=== PATIENT | female | born 1960 | race Caucasian/White ===

== ENCOUNTER 2017-02-04 19:08 | Observation (INO) | payer BC ==
[~2017-02-04] VITALS: Ht 165.1 cm; Wt 77.4 kg
[2017-02-04] MEDS ORDERED: VICTOZA18 MG/3 ML SC (19:20)
[2017-02-04] MEDS ORDERED: GLIPIZIDE5 MG PO (19:21)
[2017-02-04] MEDS ORDERED: METFORMIN1000 MG PO (19:21)
[2017-02-04] MEDS ORDERED: ASPIRIN81 MG PO (19:22)
[2017-02-04] MEDS ORDERED: CELEXA20 M1 PO (19:22)
[2017-02-04] MEDS ORDERED: ZYRTEC10 MG PO (19:23)
[2017-02-04] MEDS ORDERED: TRESIBA FL100 UNIT/M SC (19:24)
--- NOTE | 2017-02-04 19:28 | NUR ---
Pt ambulated to room # 13 with steady gait. Call martinez within reach.
[2017-02-04] MEDS ORDERED: CLINDAMYCIN300 M1 PO ×2 (19:40→20:17)
[2017-02-04] MEDS ORDERED: GLIPIZIDE XL5 MG PO (19:41)
[2017-02-04] MEDS ORDERED: FLUCONAZOLE150 MG PO (19:41)
[2017-02-04] MEDS ORDERED: METFORMIN500 M2 PO (19:41)
[2017-02-04] MEDS ORDERED: TOPAMAX50 MG PO (19:42)
[2017-02-04] MEDS ORDERED: DICLOFENAC SODI50 M1 PO (19:43)
--- NOTE | 2017-02-04 20:00 | NUR ---
DR VARGAS AT BEDSIDE, I&D R LIP. PACKING INSERTED. PT TOLERATED WITHOUT DISTRESS.
[2017-02-04 20:26] LABS: HEMATOCRIT 39.5 % (37.0-47.0); HEMOGLOBIN 12.6 g/dl (12.0-16.0); IMMATURE GRANULOCYTES 0.4 % (0.0-1.0); MEAN CELL VOLUME 89.8 fL CALC (80.0-100.0); MEAN CORPUSCULAR HGB 28.6 pG CALC (26.0-32.0); MEAN CORPUSCULAR HGB CONC 31.9 g/L CALC (32.0-36.0); NEUT# 11.39 thou/uL (2.00-7.15); RED BLOOD COUNT 4.4 mill/uL (4.20-5.60); RED CELL DISTRI WIDTH 14.5 % (11.5-15.5)
[2017-02-04 20:39] LABS: ALBUMIN 4.6 g/dL (3.2-5.0); ALKALINE PHOSPHATASE 96 u/l (38-126); ANION GAP 19 (6-22 (CALC)); BILIRUBIN, TOTAL 0.7 mg/dL (0.0-1.4); BUN 19 mg/dL (7-17); BUN/CREATININE RATIO 17 (12-20 (CALC)); CALCIUM 10.2 mg/dL (8.4-10.2); CARBON DIOXIDE 21 mmol/l (22-30); CHLORIDE 105 mmol/l (95-108); CREATININE 1.1 mg/dL (0.5-1.0); GFR 51 ML/MIN (>=60 (CALC)); GFR FOR AFR.AMER. > 60 ML/MIN (>=60 (CALC)); GLUCOSE 130 mg/dL (65-105); POTASSIUM 4.6 mmol/l (3.5-5.1); SGOT/AST 20 u/l (14-36); SGPT/ALT 31 u/l (9-52); SODIUM 141 mmol/l (137-146); TOTAL PROTEIN 8.2 g/dL (6.3-8.2)
--- NOTE | 2017-02-04 21:00 | NUR ---
DRESSING PLACED OVER R LIP. PT WITHOUT DISTRESS AT THIS TIME.
--- NOTE | 2017-02-04 21:35 | NUR ---
PT INFORMED OF ADMISSION.
--- NOTE | 2017-02-04 21:56 | NUR ---
REPORT CALLED TO [facility].
--- NOTE | 2017-02-04 21:58 | NUR ---
PT TO 261 VIA W/C.
[2017-02-04 22:01] VITALS: BP 122/84
--- NOTE | 2017-02-04 22:01 | NUR ---
PATIENT ARRIVED TO THE FLOOR FROM ED VIA WHEELCHAIR IN STABLE CONDITION, ACCOMPANIED BT ED STAFF. PATIENT SETTLED TO BED AND ORIENTED TO ROOM CALL SYSTEM. PATIENT DENIES PAIN AT THIS TIME. BED IN LOW POSITION, CALL LIGHT IN REACH.
--- NOTE | 2017-02-05 | NUR ---
PATIENT RESTING QUIETLY IN BED. NO ACUTE CHANGES NOTED IN PATIENT'S CONDITION.
[2017-02-05 04:32] VITALS: BP 131/62
[2017-02-05 05:30] LABS: HEMATOCRIT 34.6 % (37.0-47.0); HEMOGLOBIN 10.8 g/dl (12.0-16.0); MEAN CELL VOLUME 90.3 fL CALC (80.0-100.0); MEAN CORPUSCULAR HGB 28.2 pG CALC (26.0-32.0); MEAN CORPUSCULAR HGB CONC 31.2 g/L CALC (32.0-36.0); RED BLOOD COUNT 3.83 mill/uL (4.20-5.60); RED CELL DISTRI WIDTH 14.6 % (11.5-15.5)
[2017-02-05 05:37] LABS: ANION GAP 14 (6-22 (CALC)); BUN 18 mg/dL (7-17); BUN/CREATININE RATIO 19 (12-20 (CALC)); CALCIUM 9.4 mg/dL (8.4-10.2); CARBON DIOXIDE 24 mmol/l (22-30); CHLORIDE 108 mmol/l (95-108); CREATININE 0.9 mg/dL (0.5-1.0); GFR > 60 ML/MIN (>=60 (CALC)); GFR FOR AFR.AMER. > 60 ML/MIN (>=60 (CALC)); GLUCOSE 72 mg/dL (65-105); MAGNESIUM 1.5 mg/dL (1.6-2.3); POTASSIUM 4.1 mmol/l (3.5-5.1); SODIUM 142 mmol/l (137-146)
--- NOTE | 2017-02-05 07:20 | NUR ---
REPORT RECEIVED FROM KAYLEE BYRD; PT.IS SLEEPING AT THIS TIME W/FAMILY AT BS; PT.AWOKE UPON US ENTERING ROOM, DENIES ANY NEEDS AT THIS TIME, CALL LIGHT IS WITHIN REACH; WILL FOLLOW-UP WITH V/S AND ASSESSMENT.
[2017-02-05 08:10] VITALS: BP 86/57
--- NOTE | 2017-02-05 08:30 | NUR ---
PT.V/S ASSESSED, B/P 86/57, MIKE CEDEÑO AND ARE IN ROOM AT THIS TIME; MIKE CEDEÑO ORDERED FLUIDS TO BE INCREASED TO 250MLS/HR BOLUS FOR 1HR FOR B/P; WILL REASSESS IN AN HOUR
--- NOTE | 2017-02-05 09:42 | NUR ---
Drug Selected: Vancomycin Age: 56 years Weight: 77 kg Height: 65 in Gender: Female SCR: 0.9 mg/dl Calculated Values: IBW: 57.00 kg CRCL (ml/min): 61.3 Portillo (hr-1): 0.055 Half-life (hrs): 12.60 Final Report: Give Vancomycin 1000 mg q12 hrs nEXT TROUGH WILL BE 02/06/17 AT 0930
--- NOTE | 2017-02-05 10:13 | NUR ---
PT.B/P BACK UP TO 105/; PT.GETTING SHOWER AT THIS TIME, I WILL START ANTIBIOTIC THERAPY WHEN SHE IS OUT OF SHOWER
[2017-02-05 10:20] VITALS: BP 105/66
[2017-02-05 15:26] VITALS: BP 90/53
--- NOTE | 2017-02-05 17:00 | NUR ---
PT.MEDICATED ORDERS PROVIDE, PT.UP TO RESTROOM, PT.DAUGHTER IS AT BS, SNACK PROVIDED. PT.DENIES ANY PAIN OR DISCOMFORT AT THIS TIME; PT.WAS INSTRUCTED TO CALL IF ANY NEEDS ARISE
--- NOTE | 2017-02-05 19:33 | NUR ---
BEDSIDE REPORT RECEIVED FROM KAYLEE HARRIS. PT RESTING IN POSITIONED ON LEFT SIDE. STATES THAT LORTAB WAS EFFECTIVE FOR PAIN AND ZOFRAN EFFECTIVE FOR NAUSEA. RESPIRATIONS EVEN AND UNLABORED. PLAN OF CARE REVIWED WITH PT. PT ENCOURAGED TO VERBALIZE CONCERNS. STATES UNDERSTANDING. SAFETY MEASURES IN PLACE. CALL LIGHT WITHIN REACH.
[2017-02-05 19:55] VITALS: BP 96/62
--- NOTE | 2017-02-06 00:36 | NUR ---
PT UP WATCHING TV. NEW IV STARTED DUE TO PREVIOUS ONE LEAKING. NEW IV SITE FLUSHES AND APPEARS HEALTHY. PT DENIES PAIN; RESPIRATIONS EVEN AND UNLABORED. IV ABT INFUSED WITH NO ADVERSE REACTIONS NOTED. PT HAS NO REQUESTS AT THIS TIME. UP AD MIKAYLA TO BATHROOM. SAFETY MEASURES IN PLACE. CALL LIGHT WITHIN REACH.
--- NOTE | 2017-02-06 04:21 | NUR ---
PT ASLEEP AT THIS TIME. NO SIGNS OF DISTRESS NOTED. RESPIRATIONS EVEN AND UNLABORED. NEW TAINA AND PAPER TAPE APPLIED TO LIP/EXPOSED PACKING TO PREVENT IRRITATION. PT INDEPENDENT IN ROOM; UP AD MIKAYLA TO USE RESTROOM. USES CALL LIGHT WHEN ASSISTANCE NEEDED. CALL LIGHT WITHIN REACH.
[2017-02-06 04:40] VITALS: BP 95/61
--- NOTE | 2017-02-06 07:05 | NUR ---
PT RESTING WITH EYES CLOSED ON ROUNDS; NO COMPLAINTS VOICED; CALL ALSTON WITHIN REACH; WILL CONTINUE TO MONITOR.
[2017-02-06 08:00] VITALS: BP 109/69
--- NOTE | 2017-02-06 09:30 | NUR ---
DR. OLIVAREZ IN TO SEE PT; DRSG FROM RT UPPER LIP REMOVED, PACKING REMOVED AND AREA CLEANED WITH NS; AREA PACKED BY MD WITH IODOFORM GAUZED COVERED WITH 1 2X2 GAUZE AND SECURED WITH PAPER TAPE; PT TOLERATED WELL; CALL ALSTON WITHIN REACH; WILL CONTINUE TO MONITOR.
[2017-02-06] MEDS ORDERED: DOXYCYC MONO100 M3 PO (10:24)
[2017-02-06] MEDS ORDERED: FLORASTOR250 M1 PO (10:25)
--- NOTE | 2017-02-06 11:29 | NUR ---
Discharge instructions given. Patient verbalizes understanding of same. Discharged in stable condition via Ambulatory to Home with family. All belongings sent with pt.
== END 2017-02-06 12:00 | disposition home or self-care (01) | DRG 638 ==
LOC: ED 19:08 → ED-I 21:00 → ED 21:38 → MS2 21:39
PROVIDERS: ADMIT Internal Medicine; ATTEND Internal Medicine
PROC: 0H91XZZ Drainage of Face Skin, External Approach (ICD-10-PCS; principal; 2017-02-04)
DX: E11.628 Type 2 diabetes mellitus with other skin complications (principal); L02.01 Cutaneous abscess of face; K13.0 Diseases of lips; Z87.891 Personal history of nicotine dependence; Z79.4 Long term (current) use of insulin
CPT/HCPCS: G0378

== ENCOUNTER 2019-05-16 | Inpatient (IN) | payer SELFPAY ==
--- NOTE | 2019-05-14 10:13 | NUR ---
PT TO ROOM FOR EXAM PER W/C
[2019-05-14 10:49] LABS: HEMATOCRIT 35.4 % (37.0-47.0); HEMOGLOBIN 11.3 g/dl (12.0-16.0); IMMATURE GRANULOCYTES 0.7 % (0.0-5.0); MEAN CELL VOLUME 88.3 fL CALC (80.0-100.0); MEAN CORPUSCULAR HGB 28.2 pG CALC (26.0-32.0); MEAN CORPUSCULAR HGB CONC 31.9 g/L CALC (32.0-36.0); NEUT# 12.38 thou/uL (2.00-7.15); RED BLOOD COUNT 4.01 mill/uL (4.20-5.60); RED CELL DISTRI WIDTH 14.1 % (11.5-15.5)
[2019-05-14 11:07] LABS: ALBUMIN 3.7 g/dL (3.2-5.0); ALKALINE PHOSPHATASE 110 u/l (38-126); BILIRUBIN, TOTAL 0.6 mg/dL (0.0-1.4); BUN 19 mg/dL (7-17); BUN/CREATININE RATIO 24 (12-20 (CALC)); CARBON DIOXIDE 23 mmol/l (22-30); CHLORIDE 97 mmol/l (95-108); CREATININE 0.8 mg/dL (0.5-1.0); GFR > 60 ML/MIN (>=60 (CALC)); GFR FOR AFR.AMER. > 60 ML/MIN (>=60 (CALC)); POTASSIUM 4.4 mmol/l (3.5-5.1); SGOT/AST 25 u/l (14-36); TOTAL PROTEIN 7.1 g/dL (6.3-8.2)
[2019-05-14 11:09] LABS: ANION GAP 16 (6-22 (CALC)); SODIUM 132 mmol/l (137-146)
--- NOTE | 2019-05-14 11:10 | NUR ---
PT RETURNED FROM CT AT THIS TIME; PT C/O FEELING FLUSHED; TEMP READING 102.6 AT THIS TIME; NOTIFIED MEDICATED WITH TYLENOL PER JUL; VSS; WILL CONTINUE TO MONITOR
[2019-05-14 11:18] LABS: MYOGLOBIN 107 ng/mL (0 - 62)
--- NOTE | 2019-05-14 12:00 | NUR ---
PT TEMP 100.2; NOTIFIED; VSS;
--- NOTE | 2019-05-14 13:10 | NUR ---
PT AMB TO BR FOR UA; PT AMB WITH STEADY GAIT; DAUGHTER AT BEDSIDE
[2019-05-14 13:35] LABS: URINE BILIRUBIN - DIPSTICK NEGATIVE (NEGATIVE); URINE BLOOD DIPSTICK NEGATIVE (NEGATIVE); URINE COLOR YELLOW; URINE GLUCOSE - DIPSTICK 500 mg/dL (NEGATIVE); URINE KETONE NEGATIVE (NEGATIVE); URINE LEUK ESTERASE NEGATIVE (NEGATIVE); URINE NITRITE - DIPSTICK NEGATIVE (Negative); URINE PH 5.5 (4.5-8.0); URINE PROTEIN - DIPSTICK TRACE mg/dL (NEG-TRACE); URINE SPECIFIC GRAVITY 1.025
[2019-05-14 13:46] LABS: BARBITURATES NEGATIVE (NEGATIVE); COCAINE NEGATIVE (NEGATIVE); METHADONE NEGATIVE (NEGATIVE); OXCYCODONE NEGATIVE (NEGATIVE); TETRAHYDROCANNABIONOL NEGATIVE (NEGATIVE); TRICYLIC ANTIDEPRESSANTS NEGATIVE (NEGATIVE)
--- NOTE | 2019-05-14 14:02 | NUR ---
AT BEDSIDE TO DISCUSS CT SCAN OF ABD. VERBAL UNDERSTANDING FROM PATIENT.
--- NOTE | 2019-05-14 15:00 | NUR ---
PT RESTING ON STRETCHER NO S/S OF DISTRESS NOTED; PT UPDATED ON POC; WILL CONTINUE TO MONITOR
--- NOTE | 2019-05-14 16:00 | NUR ---
PT RESTING ON STRETCHER; NO S/S OF DISTRESS NOTED; PT UPDATED ON CONTINUED WAIT TIME
--- NOTE | 2019-05-14 17:04 | NUR ---
PT ARRIVED TO MS2 VIA WHEELCHAIR ACCOMPANIED BY FAMILY AND ED NURSE. PT ALERT AND ORIENTED X3, WT OBTAINED ON DIGITAL STANDING SCALE. ORIENTED PT TO ROOM AND CALL LIGHT, ACCUCHECK OBTAINED; 257. DISCUSSED POC, NOTED COUGH WITH THICK GREEN SPUTUM. SPECIMEN CUP PROVIDED. PT MEDICATED WITH NOVOLOG. SKIN INTACT. OFFERED PT TEDS, PT DECLINED. IS PLACED AT BEDSIDE, PT FAMILIAR WITH ITS USE. ENCOURAGED 10X EVERY HR WHILE AWAKE. ADMISSION ASSESSMENT COMPLETED, CALL LIGHT IN REACH,CONTINUE TO MONITOR.
--- NOTE | 2019-05-14 17:05 | NUR ---
Admission Note Report Given to: JOSE BAHENA Transported by: X Wheelchair Stretcher Transported with: X Nurse Transporter X Patent IV O2 Hearing And Speech Assistant
[2019-05-14 17:20] VITALS: BP 117/79
--- NOTE | 2019-05-14 17:57 | NUR ---
PER SEPSIS PROTOCOL, ELECTRONIC MUSICAL INSTRUMENT REPAIRER NOTIFIED PT POSSIBLE SEPSIS. ORDERS ENTERED FOR LACTIC ACID AT THIS TIME.
--- NOTE | 2019-05-14 18:08 | NUR ---
LACTIC ACID 2.1, CLOTH SHRINKING MACHINE OPERATOR HELPER NOTIFIED. ORDERS TO GIVE 1500L BOLUS. AWAITING ORDERS.
--- NOTE | 2019-05-14 19:47 | NUR ---
ASSESSMENT COMPLETED. PT. SLIGHTLY ANXIOUS AND RELAXATION TECHNIQUES IMPLEMENTED. UPDATED ON POC AND VERBALIZES UNDERSTANDING. IV SITE PATENT AND INFUSING IVF WELL. HALF OF LAST BOLUS STARTED AND THEN WILL BE SET TO MAINTENAINCE IVF @100MLS/HR PER ORDER. TEMP 100.8 AND MEDICATED WITH ORDERED TYLENOL; WILL REASSESS. PT. ASSISTED TO THE BATHROOM TO VOID AND BACK INTO BED WITH STEADY GAIT. INCENTIVE SPIROMETER AT BEDSIDE AND IS ENCOURAGED TO USE AND DEEP BREATHE. SPUTUM IN SPECIMEN CUP AND LABLED FOR LAB TO SENIOR CONTROL SYSTEMS ENGINEER. PT. REQUESTS SOMETHING TO HELP HER SLEEP AND NOTIFIED MIKE PEREZ OF THIS WILL AWAIT NEW ORDERS. PT. ENCOURAGED TO CALL FOR ANY NEEDS. CALL LIGHT IS IN REACH.
[2019-05-14 19:56] VITALS: BP 101/65
--- NOTE | 2019-05-14 23:59 | NUR ---
ASSISTED TO AND FROM THE BATHROOM WITH STEADY GAIT. VOICES NO CONCERNS. CALL LIGHT IS IN REACH. WILL CONTINUE TO MONITOR.
--- NOTE | 2019-05-15 02:05 | NUR ---
PT. ASSISTED TO BATHROOM AND BACK INTO BED. PT. C/O LOWER BACK ACHE AND WARM COMPRESSESS APPLIED. PT. OFFERED A SHOWER AND PT. DECLINES AND REPORTS SHE WILL WAIT FOR HER DAUGHTER TO COME IN THE AM. ENCOURAGED TO CALL FOR ANY NEEDS. CALL LIGHT IS IN REACH.
[2019-05-15 04:00] VITALS: BP 101/55
--- NOTE | 2019-05-15 04:06 | NUR ---
PT. ASSISTED TO AND FROM THE BATHROOM WITH STEADY GAIT. CONTINUES TO C/O INTERMITTENT LOWER BACK PAIN AND TEMP 100.1, MEDICATED WITH ORDERED TYLENOL AND WARM PACKS APPLIED TO LOWER BACK. WILL REASSESS. FRESH WATER PROVIDED. DENIES FURTHER NEEDS. CALL LIGHT IS IN REACH.
--- NOTE | 2019-05-15 05:14 | NUR ---
TEMP NOW 97.8 AND DENIES NEEDS AT THIS TIME. CALL LIGHT IS IN REACH.
--- NOTE | 2019-05-15 06:05 | NUR ---
PT. RESTING IN BED WITH NO DISTRESS NOTED; REPORTS A COUGH AND ASKED PT. IF SHE WOULD LIKE THIS FOREIGN AGENT TO CALL FOR MEDICATION FOR COUGH AND PER PT. SHE REPORTS IT CAN WAIT UNTIL MD COMES FOR ROUNDS THIS AM.
--- NOTE | 2019-05-15 07:13 | NUR ---
PT. C/O LOWER BACK PAIN AND COUGH, MEDICATED WITH ORDERED PRN TORADOL AND LOZENGE. DAYSHIFT NURSE TO REASSESS.
[2019-05-15 08:00] VITALS: BP 109/76
--- NOTE | 2019-05-15 08:00 | NUR ---
ASSESSMENT IS COMPLETED: IV SITE IS FREE FROM REDNESS OR EDEMA. HR IS REG,PULSES ARE STRONG X4, ABD IS SOFT WITH ACTIVE BS. BREATH SOUNDS ARE CLEAR AND DIMINISHED. CONTINUE TO OSBERVE AND MONITOR.
[2019-05-15 12:06] LABS: HEMATOCRIT 31.1 % (37.0-47.0); HEMOGLOBIN 9.8 g/dl (12.0-16.0); IMMATURE GRANULOCYTES 1.1 % (0.0-5.0); MEAN CELL VOLUME 89.1 fL CALC (80.0-100.0); MEAN CORPUSCULAR HGB 28.1 pG CALC (26.0-32.0); MEAN CORPUSCULAR HGB CONC 31.5 g/L CALC (32.0-36.0); NEUT# 7.24 thou/uL (2.00-7.15); RED BLOOD COUNT 3.49 mill/uL (4.20-5.60); RED CELL DISTRI WIDTH 14.4 % (11.5-15.5)
--- NOTE | 2019-05-15 12:15 | NUR ---
PT IS RELAXING IN BED WITH NO DISTRESS NOTED. IV SITE IS FREE FROM REDNESS OR EDEMA. FAMILY HS BEEN IN AND OUT OF THE ROOM. CONTINUE TO OBSERVE AND MONITOR.
[2019-05-15 12:17] LABS: ANION GAP 12 (6-22 (CALC)); BUN 13 mg/dL (7-17); BUN/CREATININE RATIO 19 (12-20 (CALC)); CALCULATED LDLCHOLESTEROL 82 mg/dL (62-129 (CALC)); CARBON DIOXIDE 19 mmol/l (22-30); CHLORIDE 108 mmol/l (95-108); CHOLESTEROL HDL RATIO 4.3 (<4.4 (CALC)); CREATININE 0.7 mg/dL (0.5-1.0); GFR > 60 ML/MIN (>=60 (CALC)); GFR FOR AFR.AMER. > 60 ML/MIN (>=60 (CALC)); HDL CHOLESTEROL 33 mg/dL (>=40); MAGNESIUM 1.6 mg/dL (1.6-2.3); SODIUM 136 mmol/l (137-146); TOTAL CHOLESTEROL 142 mg/dl (0-199); TOTAL TRIGLYCERIDES 133 mg/dl (30-149); VLDL CHOLESTROL 27 mg/dl (1-41 (CALC))
[2019-05-15 15:05] VITALS: BP 117/71
--- NOTE | 2019-05-15 16:15 | NUR ---
PT IS RELAXING IN BED . HAD A SHOWER WHEN HER DAUGHTER CAME IN. IV SITE IS FREE FROM REDNESS OR EDEMA.
--- NOTE | 2019-05-15 18:47 | NUR ---
PT C/O ITCHING. INFORMED GALA DARDEN., WILL ORDER HER SOMETHING.
[2019-05-15 19:50] VITALS: BP 122/77
--- NOTE | 2019-05-15 19:54 | NUR ---
ASSESSMENT COMPLETED. NO RESP. DISTRESS NOTED. INCENTIVE SPIROMETER ENCOURAGED WELL DEEP BREATHING. PT. REPORTING LEFT PLEURAL PAIN AND LEFT LOWER BACK PAIN AND MEDICATED WITH ORDERED PRN TORADOL; WILL REASSESS. FRESH ICE WATER GIVEN PER HER REQUEST AND STBY ASSISTANCE PROVIDED TO AND FROM THE BATHROOM, PT. WITH STEADY GAIT. UPDATED ON POC AND VERBALIZES UNDERSTANDING. IV SITE PATENT AND CONTINUOUS IVF INFUSING PER ORDER. CALL LIGHT IS IN REACH. WILL CONTINUE TO MONITOR.
--- NOTE | 2019-05-15 21:06 | NUR ---
PT. RESTING IN BED AND MEDICATED WITH ORDERED/SCHED MEDS WELL PRN ROBITUSSIN AC AND RESTORIL TO ASSIST WITH COUGH AND SLEEP, WILL REASSESS. PO FLUIDS OFFERED. ENCOURAGED TO CALL FOR ANY NEEDS. ARY LIGHT IS IN REACH. WILL CONTINUE TO MONITOR.
[~2019-05-16] MED LIST: ASPIRIN81 MG PO; CELEXA20 M1 PO; CLINDAMYCIN300 M1 PO; DICLOFENAC SODI50 M1 PO; DOXYCYC MONO100 M3 PO; FLORASTOR250 M1 PO; FLUCONAZOLE150 MG PO; GLIPIZIDE XL5 MG PO; GLIPIZIDE5 MG PO; LANTUS100 UNIT/M IJ; METFORMIN1000 MG PO; METFORMIN500 M2 PO; PRAVASTATIN SOD20 MG PO; TOPAMAX50 MG PO; TRESIBA FL100 UNIT/M SC; VICTOZA18 MG/3 ML SC; ZYRTEC10 MG PO
--- NOTE | 2019-05-16 00:03 | NUR ---
PT. RESTING IN BED ON RIGHT SIDE WITH EYES CLOSED; RESP. EVEN AND UNLABORED. TEMP CHECKED AND 97.1. WILL CONTINUE TO MONITOR. CALL LIGHT IS IN REACH.
--- NOTE | 2019-05-16 02:13 | NUR ---
PT. C/O COUGH AND GIVEN A CHLORASEPTIC LOZENGE IT IS TOO EARLY FOR COUGH SYRUP ALSO RT AT BEDSIDE FOR PRN NEB TX PER ORDER AND PT'S REQUEST. PO FLUIDS OFFERED. CALL LIGHT IS IN REACH. WILL CONTINUE TO MONITOR.
--- NOTE | 2019-05-16 03:09 | NUR ---
PT. C/O LEFT LOWER BACK AND LEFT PLEURAL PAIN 8/10 AND COUGH, MEDICATED WITH ORDERED PRN TORADOL AND ROBITUSSIN AC. WILL REASSESS. VSS. ENCOURAGED TO CALL FOR ANY NEEDS. VOICES NO FURTHER NEEDS. CALL LIGHT IS IN REACH. WILL CONTINUE TO MONITOR.
[2019-05-16 03:10] VITALS: BP 143/85
--- NOTE | 2019-05-16 05:22 | NUR ---
PT. RESTING IN BED ON PHONE WITH NO DISTRESS NOTED; NEW BAG OF ORDERED IVF HUNG. FRESH WATER PROVIDED. ENCOURAGED TO CALL FOR ANY NEEDS. CALL LIGHT IS IN REACH.
[2019-05-16 07:35] VITALS: BP 107/59
--- NOTE | 2019-05-16 07:35 | NUR ---
ASSESSMENT IS COMPLTED: IV SITE IS FREE FROM REDNESS OR EDEMA.HR IS REG,PULSES ARE STRONG X4, ABD IS SOFT WITH ACTIVE BS. BREATH SOUNDS ARE COIARSE, DIMINISHED AND CLEAR. PT'S ROOM WAS WARM AND MANY BLANKETS. TEMP WAS 99.3
--- NOTE | 2019-05-16 11:01 | NUR ---
PT TEMP WENT TO 102.0 ROOM CONTINUES TO BE WARM, PT IS UNER MANY BLANKETS ALREADY RECEIVED THE FLU AND PNEUMONIA INJECTION. TOLERATED WELL., FAMILY IN THE ROOM. ENCOURAGED PT TO AMBULATE AND DRINK PLENTY OF FLUIDS
--- NOTE | 2019-05-16 12:40 | NUR ---
PT IS RESTING IN BED WITH NO DISTRESS NOTED. IV SITE IS FREE FROM REDNESS OR EDEMA.
[2019-05-16 15:47] VITALS: BP 138/84
--- NOTE | 2019-05-16 16:40 | NUR ---
PT IS RELAXING IN BED , ENCOURAGED TO DRINK MORE FLUIDS. TO GET TEMP DOWN. IV SITE IS FREE FROM REDNESS OR EDEMA.
[2019-05-16 19:15] VITALS: BP 124/77
--- NOTE | 2019-05-16 20:00 | NUR ---
PT ASSISTED TO RESTROOM AND BACK TO BED. PT BECAME SOB UPON AMBULATION. 02 REPLACED AT BEDSIDE AND PT INSTRUCTED TO TAKE DEEP BREATHS THROUGH NOSE. RESPIRATIONS UNLABORED UPON SITTING AND 02 REPLACED W/PROMPTING. PT ATTEMPTS TO TALK WHILE AMBULATING AND BECOMES SOB. 02 SATS 94% W/02 ON 2LNC. PT DENIES ANY OTHER SYMPTOMS.
--- NOTE | 2019-05-16 20:50 | NUR ---
PT MEDICATED ORDERS PROVIDE. PT ASSESSMENT COMPLETED AT THIS TIME. PT IN BED IN LOW FOWLERS POSITION, NO SOB AT THIS TIME, 02NC HAS BEEN REMOVED BY PT. POC DISCUSSED W/PT AND MEDICATION SCHEDULE. DENIES ANY OTHER NEEDS AT THIS TIME. CALL LIGHT W/IN REACH.
--- NOTE | 2019-05-16 23:55 | NUR ---
ASSISTED PT TO RESTROOM AND BACK TO BED. IV SITE FOUND DISLODGED/SITE APPEARS HEALTHY AND INTACT. NEW IV ACCESS OBTAINED AT THIS TIME AND IV ANTIBIOTIC THERAPY ADMINISTERED AT THIS TIME. CALL LIGHT LEFT W/IN REACH.
[2019-05-17 04:10] VITALS: BP 101/60
[2019-05-17 04:44] LABS: HEMATOCRIT 28.5 % (37.0-47.0); HEMOGLOBIN 9.2 g/dl (12.0-16.0); IMMATURE GRANULOCYTES 2.1 % (0.0-5.0); MEAN CELL VOLUME 86.9 fL CALC (80.0-100.0); MEAN CORPUSCULAR HGB CONC 32.3 g/L CALC (32.0-36.0); NEUT# 10.81 thou/uL (2.00-7.15); RED BLOOD COUNT 3.28 mill/uL (4.20-5.60); RED CELL DISTRI WIDTH 14.4 % (11.5-15.5)
[2019-05-17 04:58] LABS: ANION GAP 15 (6-22 (CALC)); BUN 10 mg/dL (7-17); BUN/CREATININE RATIO 12 (12-20 (CALC)); CARBON DIOXIDE 20 mmol/l (22-30); CHLORIDE 104 mmol/l (95-108); CREATININE 0.8 mg/dL (0.5-1.0); GFR > 60 ML/MIN (>=60 (CALC)); GFR FOR AFR.AMER. > 60 ML/MIN (>=60 (CALC)); MAGNESIUM 1.4 mg/dL (1.6-2.3); POTASSIUM 4.3 mmol/l (3.5-5.1); SODIUM 135 mmol/l (137-146)
--- NOTE | 2019-05-17 05:45 | NUR ---
PT MEDICATED FOR TEMP 100.6 AND ASSISTED TO RESTROOM. PT UNSTEADY ON FEET. SAFETY MEASURES REINFORCED AT THIS TIME. CALL LIGHT AT SIDE.
[2019-05-17 07:52] VITALS: BP 95/61
--- NOTE | 2019-05-17 08:00 | NUR ---
PT RESTING QUIETLY IN THE BED UPON ENTERING ROOM. NO COUGH HEARD, LUNG SOUNDS ARE CLEAR.
--- NOTE | 2019-05-17 11:18 | NUR ---
S: JOHNATHON GALVAN is a 58 F who presents with community acquired pneumonia. She has a history of T2DM, osteoarthritis, dyslipidemia, and depression. All medications in patient's chart were reviewed. O: VS: BP 95/61 mmhg, P 90 bpm, RR 28 breaths/min, T 98.7 F W 82.61 kg, HT 65 in, Scr= 0.8 mg/dl, CrCl= 79.3 ml/min A: Blood culture is pending. P: Patient is on aztreonam 1 g IV q8h @ 0000, 0800, and 1600 and levofloxacin 750 mg IV q24h @ 1300. Vancomycin ordered for pharmacy to dose. Start Vancomycin 1g IV Q12H @ 0900 and 2100. Vancomycin trough is drawn before the 4th dose on 05/18/19 @ 2030. Vancomycin goal trough is between 15-20 mcg/ml. Pharmacy will follow and or advise on antibiotics use as needed.
--- NOTE | 2019-05-17 12:00 | NUR ---
PT IS AMBULATORY IN ROOM NEEDED. IVF CONTINUES. BLOOD SUGARS HIGH, COVERED ACCORDINGLY.
--- NOTE | 2019-05-17 16:00 | NUR ---
PT STATES THAT SHE FELT LIKE SHE WAS HAVING A FEVER, 102.7. PT PROVIDED TORADOL TYLENOL NO T AVAILABLE YET.
[2019-05-17 17:07] VITALS: BP 129/75
[2019-05-17 19:00] VITALS: BP 104/62
--- NOTE | 2019-05-17 19:40 | NUR ---
pt assisted to restroom and back to bed. pt tolerated well, 02 placed back on nc@2L. no sob upon ambulating this time. pt denies any needs at this time. daughter arriving to room/poc discussed w/pt and daughter. call light left w/in reach.
--- NOTE | 2019-05-17 20:42 | NUR ---
PT MEDICATED ORDERS PROVIDE. PT C/O BEING COLD, ADDITIONAL BLANKET PROVIDED AND ROOM WARMED. DENIES ANY OTHER NEEDS AT THIS TIME. CALL LIGHT W/IN REACH.
--- NOTE | 2019-05-18 01:40 | NUR ---
PT CALLED TO REPORT THAT SHE DROPPED HER LARGE YETI STYLE CUP. UPON ENTERING ROOM PT IS IN BED, LARGE CUP AND ICE WATER COVER THE FLOOR. FLOOR CLEANED OF SPILLED WATER, IVF REPLENISHED AT THIS TIME. PT DENIES THE NEED TO AMBULATE TO RESTROOM AT THIS TIME. CALL LIGHT AT BEDSIDE AND PT ENCOURAGED TO CALL NEEDS ARISE.
[2019-05-18 04:00] VITALS: BP 133/72
--- NOTE | 2019-05-18 04:25 | NUR ---
AIDE IN W/PT REPORTING TEMP OF 104.2. PT ICED-DOWN W/ICEPACKS, BLANKETS REMOVED AND ROOM COOLED. PT MEDICATED W/TYLENOL FOR TEMP. WILL CONTINUE TO MONITOR CLOSELY. PT REQUESTING CRACKERS/SNACK TO EAT/PROVIDED.
--- NOTE | 2019-05-18 04:30 | NUR ---
PT REPORTS FEELING LIKE HER SUGAR IS LOW AND IS ASKING FOR CRACKERS/PROVIDED W/PEANUT BUTTER. ACCU CHECK AT THIS TIME IS 177.
[2019-05-18 04:50] LABS: HEMATOCRIT 31.7 % (37.0-47.0); HEMOGLOBIN 9.7 g/dl (12.0-16.0); IMMATURE GRANULOCYTES 3.7 % (0.0-5.0); MEAN CELL VOLUME 89.8 fL CALC (80.0-100.0); MEAN CORPUSCULAR HGB 27.5 pG CALC (26.0-32.0); MEAN CORPUSCULAR HGB CONC 30.6 g/L CALC (32.0-36.0); NEUT# 6.42 thou/uL (2.00-7.15); RED BLOOD COUNT 3.53 mill/uL (4.20-5.60); RED CELL DISTRI WIDTH 14.7 % (11.5-15.5)
[2019-05-18 05:04] LABS: ANION GAP 14 (6-22 (CALC)); BUN 11 mg/dL (7-17); BUN/CREATININE RATIO 15 (12-20 (CALC)); CARBON DIOXIDE 22 mmol/l (22-30); CHLORIDE 104 mmol/l (95-108); CREATININE 0.8 mg/dL (0.5-1.0); GFR > 60 ML/MIN (>=60 (CALC)); GFR FOR AFR.AMER. > 60 ML/MIN (>=60 (CALC)); MAGNESIUM 1.7 mg/dL (1.6-2.3); POTASSIUM 4.8 mmol/l (3.5-5.1); SODIUM 135 mmol/l (137-146)
[2019-05-18 07:30] VITALS: BP 122/69
--- NOTE | 2019-05-18 08:00 | NUR ---
PT SEEN AT REST IN BED WITH EYES CLOSED, WAKENS WITH VOICE. PT IS ALERT AND ORIENTED X 3. FEVER SEEN DOWN TO 100.2 FROM EARLIER 101.2 DURING THE NIGHT. NO COMPLAINT SHORTNESS OF BREATH, NO CHEST PAIN.
--- NOTE | 2019-05-18 12:00 | NUR ---
PT ASSISTED WITH BATH AND AMBULATION IN [place] BY DAUGHTER RADHA. PT CHECKED FOR FEVER WHEN SHE SAID SHE FELT ONE, BUT NONE THERE. PT OOB IN CHAIR.
[2019-05-18 15:30] VITALS: BP 128/75
--- NOTE | 2019-05-18 16:00 | NUR ---
PT PROVIDED TYLENOL PER LOW GRADE FEVER AND ACHINESS. PT SEEN BY DR BROOKS THIS AFTERNOON, PLAN OF CARE DISCUSSED.
--- NOTE | 2019-05-18 19:19 | NUR ---
PT. RESTING IN BED WITH NO DISTRESS NOTED. ALEC RN, IN AT BEDSIDE STARTING NEW IV SITE.
[2019-05-18 20:00] VITALS: BP 135/83
--- NOTE | 2019-05-18 20:24 | NUR ---
PT. AMBULATING BACK FROM THE BATHROOM AND DENIES NEEDS/PAIN. IV SITE PATENT AND INFUSING ORDERED IVF WELL. LORENZOO HELD FOR TROUGH AT THIS TIME. PT. DENIES PAIN. SCHED MEDS GIVEN ALONG WITH PRN RESTORIL PT. REQUESTS AND ORDERED. UPDATED ON POC.ENCOURAGED USE OF INCENTIVE SPIROMETER. ENCOURAGED TO CALL FOR ANY NEEDS. CALL LIGHT IS IN REACH.
--- NOTE | 2019-05-18 23:47 | NUR ---
TEMP REASSESSED AND IS 99.7 AND BEGINNING TO HAVE CHILLS AND MEDICATED WITH ORDERED PRN TYLENOL; WILL REASSESS. PT. REQUESTS NEB TX, RT AT BEDSIDE. FRESH WATER GIVEN. ENCOURAGED TO CALL FOR ANY NEEDS. CALL LIGHT IS IN REACH.
--- NOTE | 2019-05-19 01:59 | NUR ---
PT. RESTING IN BED WITH NO DISTRESS NOTED; DENIES NEEDS/PAIN. TEMP 98.6. ENCOURAGED TO CALL FOR ANY NEEDS. CALL LIGHT IS IN REACH.
[2019-05-19 04:44] VITALS: BP 126/79
--- NOTE | 2019-05-19 04:44 | NUR ---
TEMP 100.4 AND TOO EARLY FOR TYLENOL. COOL WASH CLOTH APPLIED TO FORHEAD AND BLANKETS REMOVED, WILL REASSESS TEMP SHORTLY.
[2019-05-19 05:26] LABS: HEMATOCRIT 30.1 % (37.0-47.0); HEMOGLOBIN 9.3 g/dl (12.0-16.0); IMMATURE GRANULOCYTES 3.8 % (0.0-5.0); MEAN CELL VOLUME 89.9 fL CALC (80.0-100.0); MEAN CORPUSCULAR HGB 27.8 pG CALC (26.0-32.0); MEAN CORPUSCULAR HGB CONC 30.9 g/L CALC (32.0-36.0); NEUT# 4.65 thou/uL (2.00-7.15); RED BLOOD COUNT 3.35 mill/uL (4.20-5.60)
[2019-05-19 05:46] LABS: ANION GAP 13 (6-22 (CALC)); BUN 11 mg/dL (7-17); BUN/CREATININE RATIO 14 (12-20 (CALC)); CARBON DIOXIDE 23 mmol/l (22-30); CHLORIDE 107 mmol/l (95-108); CREATININE 0.7 mg/dL (0.5-1.0); GFR > 60 ML/MIN (>=60 (CALC)); GFR FOR AFR.AMER. > 60 ML/MIN (>=60 (CALC)); MAGNESIUM 1.5 mg/dL (1.6-2.3); POTASSIUM 4.4 mmol/l (3.5-5.1); SODIUM 139 mmol/l (137-146)
--- NOTE | 2019-05-19 05:46 | NUR ---
TEMP REASSESSED AND NOW 98.2. VOICES NO CONCERNS AND DENIES NEEDS. CALL LIGHT IS IN REACH.
--- NOTE | 2019-05-19 07:20 | NUR ---
Vancomycin consult Current dose being given: 1000 mg Current dosing interval: 12 hrs Current infusion time (hrs): 2 Trough level obtained: 13 mcg/ml New rate constant (debby): 0.074 hr-1 Half-life: 9.37 Hours Vd from levels: 57.82 Liters (0.7 L/kg) CLvanco= 4.279 L/hr Vancomycin 1250 mg q 12 hrs starting 0900 today Infuse over 2 hrs Expected Cpeak: 34 mcg/mL Expected Ctrough: 16 mcg/mL next trough 05/20/19 at 2030
[2019-05-19 08:00] VITALS: BP 127/68
--- NOTE | 2019-05-19 08:00 | NUR ---
PT AWAKE, ALERT, ORIENTED X 3. LUNGS CLEAR, 2 LPM NC. PT STATES THAT SHE DOES BECOME SHORT OF BREATH WHEN SHE GOES TO BR AND BACK. FEVER THIS AM OF 100.3, PROVIDED TYLENOL.
--- NOTE | 2019-05-19 16:00 | NUR ---
PT SEEN BY DR BROOKS AND GALA THIS AFTERNOON, DISCUSSION CENTERED AROUND POSSIBLE CAUSES FOR FEVER. PT CONTINUES BEFORE, NO DISTRESS, AMBULATORY IN ROOM.
--- NOTE | 2019-05-19 18:07 | NUR ---
DAUGHTER RADHA UPDATED ON PLAN OF CARE AND LAB RESULTS. PT REMAINS BEFORE, TEMP DOWN TO 98.8.
[2019-05-19 18:46] VITALS: BP 142/88
--- NOTE | 2019-05-19 21:30 | NUR ---
ACCU-CHECK 250-COVERED WITH NOVALOG 4UNITS PER SLIDING SCALE COVERAGE PROTOCOL. CALL LIGHT IN REACH. WILL CONT TO MONITOR.
--- NOTE | 2019-05-19 23:55 | NUR ---
PATIENT RESTING IN BEDO2 VIA NASAL CANNULA IN PLACE. AWAKE ALERT AND ORIENTEDX3. PATIENT WITH IV SITE TO LAC WITH NS PATENT AND INFUSING AT 100CC/HR. TRACE EDEMA NOTED TO FEET. ENCOURAGED USE OF IS Q1H WHILE AWAKE. ABLE TO DEMONSTRATE PPROPER USE OF THE DEVICE. NON-PRODUCTIVE COUGH NOTED. SAFETY PRECAUTIONS REINFORCED. CALL LIGHT IN REACH. WILL CONT TO MONITOR.
--- NOTE | 2019-05-20 01:51 | NUR ---
PATIENT RESTING IN BED-ASKING FOR NEB TREATMENT. RT CALLED AND RESPONDED WITH NEB TREATMENT. CALL LIGHT IN REACH. WILL CONT TO MONITOR.
--- NOTE | 2019-05-20 02:59 | NUR ---
PATIENT APPEARS SLEEPING AT THIS TIME. EYES ARE CLOSED. IVF PATENT AND INFUSING AT 100CC/HR. CALL LIGHT IN REACH. WILL CONT TO MONITOR.
[2019-05-20 04:00] VITALS: BP 120/67
--- NOTE | 2019-05-20 05:32 | NUR ---
APPEARS SLEEPING AT THIS TIME WITH EYES CLOSED. IVF PATENT AND INFUSING VIA LAC SITE AT 100CC/HR. CALL LIGHT IN REACH. WILL CONT TO MONITOR.
[2019-05-20 05:55] LABS: HEMATOCRIT 30.5 % (37.0-47.0); HEMOGLOBIN 9.5 g/dl (12.0-16.0); IMMATURE GRANULOCYTES 3.2 % (0.0-5.0); MEAN CELL VOLUME 88.7 fL CALC (80.0-100.0); MEAN CORPUSCULAR HGB 27.6 pG CALC (26.0-32.0); MEAN CORPUSCULAR HGB CONC 31.1 g/L CALC (32.0-36.0); NEUT# 4.09 thou/uL (2.00-7.15); RED BLOOD COUNT 3.44 mill/uL (4.20-5.60); RED CELL DISTRI WIDTH 14.9 % (11.5-15.5)
[2019-05-20 06:23] LABS: ANION GAP 14 (6-22 (CALC)); BUN 7 mg/dL (7-17); BUN/CREATININE RATIO 11 (12-20 (CALC)); CARBON DIOXIDE 25 mmol/l (22-30); CHLORIDE 101 mmol/l (95-108); CREATININE 0.7 mg/dL (0.5-1.0); GFR > 60 ML/MIN (>=60 (CALC)); GFR FOR AFR.AMER. > 60 ML/MIN (>=60 (CALC)); MAGNESIUM 1.5 mg/dL (1.6-2.3); POTASSIUM 4.1 mmol/l (3.5-5.1); SODIUM 136 mmol/l (137-146)
[2019-05-20 07:13] VITALS: BP 118/76
--- NOTE | 2019-05-20 09:21 | NUR ---
PT RESTING IN BED, EYES CLOSED, SOFT SNORING HEARD. PT IN NO DISTRESS, AMBULATORY IN ROOM TO BR. PT WITH MILD SHORTNESS OF BREATH WHEN ARRIVING BACK TO BED FROM BR, RECOVERS QUICKLY. LUNGS CLEAR.
--- NOTE | 2019-05-20 12:20 | NUR ---
PT CONTINUES BEFORE, NO CHANGE IN STATUS. NO COMPLAINTS, NO DISTRESS.
[2019-05-20] MEDS ORDERED: TOPAMAX50 MG PO (13:52)
[2019-05-20] MEDS ORDERED: VICTOZA18 MG/3 ML SC (13:52)
[2019-05-20] MEDS ORDERED: TRESIBA FL100 UNIT/M SC (13:52)
[2019-05-20] MEDS ORDERED: LEVOFLOXACIN750 MG PO (13:54)
[2019-05-20 15:16] VITALS: BP 125/70
--- NOTE | 2019-05-20 16:00 | NUR ---
PT SEEN BY DR BROOKS THIS AFTERNOON, WILL BE DISCHARGED TO HOME. PT'S DAUGHTER WORKS UNTIL 1600, WILL ARRIVE TO PICK HER UP THEREAFTER. PT WITH NO REAL CHANGE TODAY.
[2019-05-20] MEDS ORDERED: VENTOLIN HFA IN (18:02)
--- NOTE | 2019-05-20 18:09 | NUR ---
PT HAS BEEN DISCHARGED TO HOME. DAUGHTER RADHA WOODY HAS COME AND PICKED HER UP. RXs SENT TO [facility] PROVIDED INFORMATION REGARDING [facility] COSTS WERE PROHIBITIVE. PT LEAVES [facility] IN STABLE CONDITION, TAKEN BY WHEELCHAIR TO VEHICLE.
== END 2019-05-20 18:02 | disposition home or self-care (01) | DRG 195 ==
PROVIDERS: Emergency Medicine; Nurse Practitioner Family; ADMIT Internal Medicine
PROC: 3E02340 Introduction of Influenza Vaccine into Muscle, Percutaneous Approach (ICD-10-PCS; principal; 2019-05-16)
PROC: 3E0234Z Introduction of Serum, Toxoid and Vaccine into Muscle, Percutaneous Approach (ICD-10-PCS; 2019-05-16)
DX: J18.9 Pneumonia, unspecified organism (principal); E11.65 Type 2 diabetes mellitus with hyperglycemia; E78.5 Hyperlipidemia, unspecified; M19.90 Unspecified osteoarthritis, unspecified site; F32.9 Major depressive disorder, single episode, unspecified; F41.9 Anxiety disorder, unspecified; B37.3 Candidiasis of vulva and vagina; Z23 Encounter for immunization; Z91.81 History of falling; Z87.891 Personal history of nicotine dependence; Z79.4 Long term (current) use of insulin; Z91.11 Patient's noncompliance with dietary regimen
CPT/HCPCS: J1650; J3370; J3475; Q9967; S0073